=== PATIENT | female | born 1965 | race Caucasian/White ===

== ENCOUNTER 2017-10-04 12:52 | Emergency (ER) | payer OTHER ==
[~2017-10-04] VITALS: Ht 167.6 cm; Wt 69.0 kg
[~2017-10-04 12:52] MED LIST: INSU3INS6 SQ; METF500T4 PO; REG INSULIN
[2017-10-04] MEDS ORDERED: SODIUM CHLORIDE 0.9% 1,000 ML IV ONE ×2 (13:04→14:19)
[2017-10-04 13:22] LABS: BASOPHILS % 0.4 % (0.0-2.0); EOSINOPHILS % 0.9 % (0.0-5.0); HEMATOCRIT. 43.3 % (36.0-48.0); HEMOGLOBIN. 14.2 g/dL (12.0-16.0); LYMPHOCYTES % 18.8 % (20.0-50.0); MEAN CORPUSCULAR HEMOGLOBIN 27.4 pg (28.0-32.0); MEAN CORPUSCULAR VOLUME 83.6 fL (81.0-99.0); MEAN PLATELET VOLUME 8.6 fl (7.4-10.4); MONOCYTES % 3.5 % (2.0-8.0); NEUTROPHILS % 76.4 % (40.0-76.0); PLATELET 302 x1000/uL (130-400); RED BLOOD CELL COUNT 5.19 mill/uL (4.2-5.4); RED CELL DISTRIBUTION WIDTH 13.5 % (11.6-14.6)
[2017-10-04 13:30] LABS: CHLORIDE 90 mEq/L (98-107)
[2017-10-04 13:33] LABS: INR 0.9; PROTHROMBIN TIME 9.8 sec (9.4-11.6)
[2017-10-04 13:40] LABS: CARBON DIOXIDE 24 mEq/L (21-32)
[2017-10-04 14:15] LABS: CLARITY URINE CLEAR (CLEAR); COLOR URINE YELLOW (YELLOW); GLUCOSE URINE 3+ (NEGATIVE); KETONES URINE NEGATIVE (NEGATIVE); LEUKOCYTE ESTERASE URINE NEGATIVE (NEGATIVE); NITRITE URINE NEGATIVE (NEGATIVE); OCCULT BLOOD URINE 1+ (NEGATIVE); PROTEIN URINE NEGATIVE (NEGATIVE); SPECIFIC GRAVITY URINE 1.025 (1.005-1.030); UROBILINOGEN URINE 0.2 E.U./dL (0.2-1.0)
[2017-10-04] MEDS ORDERED: INSULIN REGULAR (HUMULIN R) 300UNITS/3ML IV ONE (14:30)
[2017-10-04] MEDS ORDERED: ONDANSETRON HCL 4MG/2ML VIAL IV ONE (17:15)
[2017-10-04 17:38] VITALS: BP 162/96
== END 2017-10-04 18:59 | disposition home or self-care (01) ==
LOC: ER 13:02
DX: E11.65 Type 2 diabetes mellitus with hyperglycemia (principal); I10 Essential (primary) hypertension; Z79.4 Long term (current) use of insulin; Z90.49 Acquired absence of other specified parts of digestive tract; Z98.890 Other specified postprocedural states; Z90.710 Acquired absence of both cervix and uterus
CPT/HCPCS: 36415; 80053; 81001; 82962; 85025; 85610; 87077; 87086; 87186; 93005; 96361; 96374; 96375; 99285; J1815; J2405; Z7610; J7030

== ENCOUNTER 2024-07-10 22:32 | Inpatient (IN) | payer MEDICARE, MEDICAID ==
[~2024-07-10] VITALS: Ht 157.5 cm; Wt 38.1 kg
[~2024-07-10 22:32] MED LIST changes: +METF-414 PO; -METF500T4 PO
[2024-07-10 22:35] VITALS: O2SAT 98
[2024-07-10 23:17] LABS: BASOPHILS % 1.6 % (0.0-2.0); EOSINOPHILS % 2.8 % (0.0-5.0); HEMATOCRIT. 33.7 % (36.0-48.0); HEMOGLOBIN. 10.6 g/dL (12.0-16.0); LYMPHOCYTES % 26.2 % (20.0-50.0); MEAN CORPUSCULAR HEMOGLOBIN 27.3 pg (28.0-32.0); MEAN CORPUSCULAR HGB CONC 31.5 g/dL (31.0-37.0); MEAN CORPUSCULAR VOLUME 86.8 fL (81.0-99.0); MEAN PLATELET VOLUME 7.1 fl (7.4-10.4); MONOCYTES % 7.9 % (2.0-8.0); NEUTROPHILS % 61.5 % (40.0-76.0); PLATELET 413 x1000/uL (130-400); RED BLOOD CELL COUNT 3.88 mill/uL (4.2-5.4); WHITE BLOOD COUNT 6.9 x1000/uL (4.5-11.0)
[2024-07-10 23:28] LABS: PARTIAL THROMBOPLASTIN TIME 32.1 sec (23.4-31.0); PROTHROMBIN TIME 10.9 sec (9.6-11.0)
[2024-07-10 23:40] LABS: CHLORIDE 94 mEq/L (98-107); SODIUM 132 mEq/L (136-145)
[2024-07-10 23:41] LABS: CALCIUM 9.3 mg/dL (8.7-10.4); CARBON DIOXIDE 29 mEq/L (21-32)
[2024-07-10 23:46] LABS: CREATININE 3.5 mg/dL (0.6-1.0); GLUCOSE 175 mg/dL (70-105); TROPONIN I HIGH SENSITIVITY 34 ng/L (3.0-34); UREA NITROGEN BLOOD 53 mg/dL (9-23)
[2024-07-10 23:57] LABS: ETHANOL BLOOD < 10 mg/dL (<10)
[2024-07-11] VITALS (12 sets, daily range): BP systolic 120–166; BP diastolic 68–84; PULSE 75–82; RESP 18–20; TEMP 36.22512–37.05852; O2SAT 97–100
[2024-07-11] MEDS: HYDRALAZINE 20MG/ML VIAL IV NR (00:58)
[2024-07-11] MEDS: NITROGLYCERIN 0.4MG TABLET SL SL NR (00:58)
[2024-07-11] MEDS ORDERED: MAGNESIUM/ALUMINUM HYDROXIDE/SIMETHICONE 30ML UDC PO PRN (02:30)
[2024-07-11] MEDS ORDERED: ONDANSETRON HCL 4MG/2ML INJ IV PRN (02:30)
[2024-07-11] MEDS ORDERED: DEXTROSE 50% WATER 50ML SYRINGE IV PRN (02:30)
[2024-07-11] MEDS ORDERED: ACETAMINOPHEN 325MG TABLET PO PRN ×2 (02:30)
[2024-07-11] MEDS ORDERED: NA PHOS,M-B/NA PHOS,DI-BA ENEMA 118ML PR PRN (02:30)
[2024-07-11] MEDS ORDERED: GUAIFENESIN 200MG/10ML SUGAR FREE UDC PO PRN (02:30)
[2024-07-11] MEDS ORDERED: IPRATROPIUM/ALBUTEROL 0.5-3(2.5)MG/3ML NEB HHN PRN (02:30)
[2024-07-11] MEDS ORDERED: NITROGLYCERIN 0.4MG TABLET SL SL PRN (04:00)
[2024-07-11] MEDS ORDERED: METOCLOPRAMIDE HCL 5MG TABLET PO PRN (04:00)
[2024-07-11] MEDS: ASPIRIN 81MG TABLET PO NR (04:40)
[2024-07-11] MEDS: FUROSEMIDE 40MG/4ML VIAL IV NR (04:42)
[2024-07-11 05:12] LABS: CHLORIDE 96 mEq/L (98-107); SODIUM 132 mEq/L (136-145)
[2024-07-11 05:13] LABS: CALCIUM 8.9 mg/dL (8.7-10.4); CARBON DIOXIDE 28 mEq/L (21-32)
[2024-07-11 05:18] LABS: BASOPHILS % 0.8 % (0.0-2.0); CREATININE 3.5 mg/dL (0.6-1.0); EOSINOPHILS % 3.4 % (0.0-5.0); GLUCOSE 124 mg/dL (70-105); HEMOGLOBIN. 9.8 g/dL (12.0-16.0); LYMPHOCYTES % 28.6 % (20.0-50.0); MEAN CORPUSCULAR HEMOGLOBIN 27.4 pg (28.0-32.0); MEAN CORPUSCULAR HGB CONC 31.7 g/dL (31.0-37.0); MEAN CORPUSCULAR VOLUME 86.5 fL (81.0-99.0); MEAN PLATELET VOLUME 7.3 fl (7.4-10.4); MONOCYTES % 9.5 % (2.0-8.0); NEUTROPHILS % 57.7 % (40.0-76.0); PLATELET 409 x1000/uL (130-400); RED BLOOD CELL COUNT 3.58 mill/uL (4.2-5.4); RED CELL DISTRIBUTION WIDTH 18.9 % (11.6-14.6); UREA NITROGEN BLOOD 56 mg/dL (9-23); WHITE BLOOD COUNT 6.7 x1000/uL (4.5-11.0)
[2024-07-11 05:20] LABS: PHOSPHORUS 6.3 mg/dL (2.5-4.9)
[2024-07-11 05:24] LABS: T4 FREE 1.01 ng/dL (0.89-1.76)
[2024-07-11 05:25] LABS: THYROID STIMULATING HORMONE 5.03 uIU/mL (0.55-4.78)
[2024-07-11 05:55] LABS: TROPONIN I HIGH SENSITIVITY 37 ng/L (3.0-34)
[2024-07-11] MEDS: INSULIN LISPRO 100 UNITS/ML SUBCUT SCH (06:43)
[2024-07-11] MEDS: BLOOD SUGAR DIAGNOSTIC STRIP TEST SCH (06:43)
[2024-07-11] MEDS: ENOXAPARIN 30MG/0.3ML SYR SUBCUT SCH (08:50)
[2024-07-11] MEDS: HYDRALAZINE HCL 10MG TABLET PO SCH (08:51)
[2024-07-11] MEDS: PANTOPRAZOLE 40MG DR TABLET PO SCH (08:51)
[2024-07-11] MEDS: AMLODIPINE 5MG TABLET PO SCH (08:51)
[2024-07-11 10:17] LABS: T4 FREE 1.11 ng/dL (0.89-1.76)
[2024-07-11] MEDS: INSULIN GLARGINE 100 UNITS/ML SUBCUT SCH (11:12)
[2024-07-11] MEDS ORDERED: IOHEXOL-350 100 ML BOTTLE ONE (15:19)
[2024-07-11] MEDS: FUROSEMIDE 40MG/4ML VIAL IV SCH (17:15)
[2024-07-11 19:02] LABS: CREATINE KINASE MB FRACTION 3.7 ng/mL (0.5-3.6)
[2024-07-11 19:18] LABS: HEPATITIS B SURFACE ANTIGEN NEGATIVE (Negative)
[2024-07-11 19:39] LABS: HEPATITIS A AB IGM NEGATIVE (Negative)
[2024-07-11 19:40] LABS: HEPATITIS B CORE AB IGM NEGATIVE (Negative); HEPATITIS C AB NON REACTIVE (Neg) (Negative)
[2024-07-11] MEDS: ATORVASTATIN CALCIUM 40MG TABLET PO SCH (20:35)
[2024-07-11] MEDS: HYDROCODONE/ACETAMINOPHEN 5/325MG TABLET PO PRN (20:35)
[2024-07-11] MEDS: EPOETIN ALFA-EPBX 4,000 UNIT/ML VIAL SUBCUT SCH (21:56)
[2024-07-11] MEDS: DIPHENHYDRAMINE 25MG CAPSULE PO NR (23:14)
[2024-07-12] VITALS: BP 152/72; PULSE 76; RESP 18; TEMP 36.6696; O2SAT 100
[2024-07-12 01:31] LABS: CREATINE KINASE MB FRACTION 3.3 ng/mL (0.5-3.6)
[2024-07-12] MEDS: CLONIDINE 0.1MG TABLET PO PRN (03:50)
[2024-07-12 04:00] VITALS: BP 161/71; PULSE 74; RESP 20; TEMP 36.6696; O2SAT 98
[2024-07-12 06:54] LABS: BASOPHILS % 1.2 % (0.0-2.0); EOSINOPHILS % 4.2 % (0.0-5.0); HEMATOCRIT. 29.9 % (36.0-48.0); HEMOGLOBIN. 9.4 g/dL (12.0-16.0); LYMPHOCYTES % 23.8 % (20.0-50.0); MEAN CORPUSCULAR HGB CONC 31.4 g/dL (31.0-37.0); MEAN CORPUSCULAR VOLUME 86.1 fL (81.0-99.0); MEAN PLATELET VOLUME 7.3 fl (7.4-10.4); MONOCYTES % 11.2 % (2.0-8.0); NEUTROPHILS % 59.6 % (40.0-76.0); PLATELET 386 x1000/uL (130-400); RED BLOOD CELL COUNT 3.47 mill/uL (4.2-5.4); RED CELL DISTRIBUTION WIDTH 18.5 % (11.6-14.6); WHITE BLOOD COUNT 5.1 x1000/uL (4.5-11.0)
[2024-07-12 07:03] LABS: CHLORIDE 97 mEq/L (98-107); POTASSIUM 4.2 mEq/L (3.5-5.1); SODIUM 134 mEq/L (136-145)
[2024-07-12 07:04] LABS: CARBON DIOXIDE 29 mEq/L (21-32)
[2024-07-12 07:05] LABS: CALCIUM 8.5 mg/dL (8.7-10.4)
[2024-07-12 07:09] LABS: CREATININE 3.1 mg/dL (0.6-1.0)
[2024-07-12 07:10] LABS: CREATINE KINASE MB FRACTION 3.5 ng/mL (0.5-3.6); GLUCOSE 105 mg/dL (70-105); UREA NITROGEN BLOOD 38 mg/dL (9-23)
[2024-07-12 07:11] LABS: CREATINE KINASE 21 IU/L (34-145)
[2024-07-12 07:12] LABS: PHOSPHORUS 5.3 mg/dL (2.5-4.9)
[2024-07-12 08:00] VITALS: BP 169/82; PULSE 74; RESP 18; TEMP 37.00296; O2SAT 97
[2024-07-12] MEDS ORDERED: IOHEXOL-350 100 ML BOTTLE ONE (10:56)
[2024-07-12] MEDS ORDERED: NITROGLYCERIN SPRAY/4.9GM CAN TL NR (11:00)
[2024-07-12 16:00] VITALS: BP 166/65; PULSE 73; RESP 18; TEMP 36.3918; O2SAT 97
[2024-07-12] MEDS: HYDRALAZINE HCL 10MG TABLET PO SCH (16:37)
[2024-07-12 20:00] VITALS: BP 159/76; PULSE 81; RESP 19; TEMP 36.72516; O2SAT 98
[2024-07-12] MEDS: AMLODIPINE 5MG TABLET PO SCH (20:45)
[2024-07-13] VITALS (9 sets, daily range): BP systolic 115–174; BP diastolic 60–85; PULSE 70–78; RESP 17–20; TEMP 36.3918–37.11408; O2SAT 96–100
[2024-07-13 05:52] LABS: EOSINOPHILS % 3.1 % (0.0-5.0); HEMATOCRIT. 28.4 % (36.0-48.0); LYMPHOCYTES % 27.4 % (20.0-50.0); MEAN CORPUSCULAR HEMOGLOBIN 27.3 pg (28.0-32.0); MEAN CORPUSCULAR HGB CONC 31.6 g/dL (31.0-37.0); MEAN CORPUSCULAR VOLUME 86.2 fL (81.0-99.0); MEAN PLATELET VOLUME 7.3 fl (7.4-10.4); MONOCYTES % 10.8 % (2.0-8.0); NEUTROPHILS % 57.7 % (40.0-76.0); PLATELET 377 x1000/uL (130-400); RED CELL DISTRIBUTION WIDTH 18.5 % (11.6-14.6); WHITE BLOOD COUNT 6.2 x1000/uL (4.5-11.0)
[2024-07-13 05:56] LABS: CARBON DIOXIDE 27 mEq/L (21-32); CHLORIDE 94 mEq/L (98-107); POTASSIUM 5.5 mEq/L (3.5-5.1); SODIUM 130 mEq/L (136-145)
[2024-07-13 05:57] LABS: CALCIUM 8.5 mg/dL (8.7-10.4)
[2024-07-13 06:01] LABS: GLUCOSE 133 mg/dL (70-105)
[2024-07-13 06:02] LABS: UREA NITROGEN BLOOD 49 mg/dL (9-23)
[2024-07-13 07:58] LABS: PHOSPHORUS 6.5 mg/dL (2.5-4.9)
[2024-07-13] MEDS: ASPIRIN 81MG TABLET PO SCH (11:42)
[2024-07-13] MEDS: DOCUSATE SODIUM 100MG CAPSULE PO PRN (11:45)
[2024-07-13 21:50] LABS: POTASSIUM 5.3 mEq/L (3.5-5.1)
[2024-07-13 21:57] LABS: CREATININE 3.4 mg/dL (0.6-1.0)
[2024-07-14] VITALS: BP 159/61; PULSE 75; RESP 18; TEMP 36.61404; O2SAT 97
[2024-07-14] MEDS: LORAZEPAM 0.5MG TABLET PO NR (03:57)
[2024-07-14 04:00] VITALS: BP 156/65; PULSE 71; RESP 20; TEMP 36.05844; O2SAT 97
[2024-07-14 07:35] LABS: CHLORIDE 95 mEq/L (98-107); POTASSIUM 5.6 mEq/L (3.5-5.1); SODIUM 129 mEq/L (136-145)
[2024-07-14 07:36] LABS: CALCIUM 8.7 mg/dL (8.7-10.4); CARBON DIOXIDE 24 mEq/L (21-32)
[2024-07-14 07:39] LABS: BASOPHILS % 0.7 % (0.0-2.0); EOSINOPHILS % 2.5 % (0.0-5.0); HEMATOCRIT. 27.9 % (36.0-48.0); HEMOGLOBIN. 8.8 g/dL (12.0-16.0); LYMPHOCYTES % 23.1 % (20.0-50.0); MEAN CORPUSCULAR HEMOGLOBIN 27.3 pg (28.0-32.0); MEAN CORPUSCULAR HGB CONC 31.5 g/dL (31.0-37.0); MEAN CORPUSCULAR VOLUME 86.5 fL (81.0-99.0); MEAN PLATELET VOLUME 7.2 fl (7.4-10.4); MONOCYTES % 9.3 % (2.0-8.0); NEUTROPHILS % 64.4 % (40.0-76.0); PLATELET 396 x1000/uL (130-400); RED BLOOD CELL COUNT 3.22 mill/uL (4.2-5.4); RED CELL DISTRIBUTION WIDTH 19.1 % (11.6-14.6); UREA NITROGEN BLOOD 54 mg/dL (9-23); WHITE BLOOD COUNT 6.7 x1000/uL (4.5-11.0)
[2024-07-14 07:41] LABS: CREATININE 3.6 mg/dL (0.6-1.0); GLUCOSE 188 mg/dL (70-105)
[2024-07-14 07:43] LABS: ALANINE AMINOTRANSFERASE 11 IU/L (10-49); ALBUMIN 3.7 g/dL (3.2-4.8); ASPARTATE AMINOTRANSFERASE 13 IU/L (<34); PHOSPHORUS 6.8 mg/dL (2.5-4.9)
[2024-07-14 07:44] LABS: BILIRUBIN TOTAL 0.2 mg/dL (0.1-1.0)
[2024-07-14 08:04] VITALS: BP 148/63; PULSE 64; RESP 18; TEMP 36.61404; O2SAT 100
[2024-07-14 08:21] LABS: BILIRUBIN DIRECT < 0.1 mg/dL (<=3.0)
[2024-07-14] MEDS: FAMOTIDINE 20MG TABLET PO SCH (08:35)
[2024-07-14] MEDS ORDERED: SODIUM ZIRCONIUM CYCLOSILICATE 10GM/PACKET PO NR ×2 (11:45→21:00)
[2024-07-14] MEDS ORDERED: NALOXONE HCL 0.4MG/ML VIAL IV PRN (12:00)
== END 2024-07-14 11:05 | disposition left against medical advice (07) | DRG 264 ==
LOC: ER 22:32 → EDBEDREQ 07-11 01:42 → EDBEDREQTM 07-11 01:42 → 7WST 07-11 05:08
PROVIDERS: ADMIT Internal Medicine; ATTEND Internal Medicine
PROC: 0JBQ0ZZ Excision of Right Foot Subcutaneous Tissue and Fascia, Open Approach (ICD-10-PCS; principal; 2024-07-11)
PROC: 5A1D70Z Performance of Urinary Filtration, Intermittent, Less than 6 Hours Per Day (ICD-10-PCS; 2024-07-11)
PROC: 5A1D70Z Performance of Urinary Filtration, Intermittent, Less than 6 Hours Per Day (ICD-10-PCS; 2024-07-13)
DX: I13.2 Hypertensive heart and chronic kidney disease with heart failure and with stage 5 chronic kidney disease, or end stage renal disease (principal); I50.33 Acute on chronic diastolic (congestive) heart failure; J96.90 Respiratory failure, unspecified, unspecified whether with hypoxia or hypercapnia; L89.613 Pressure ulcer of right heel, stage 3; N18.6 End stage renal disease; E78.5 Hyperlipidemia, unspecified; E11.65 Type 2 diabetes mellitus with hyperglycemia; E11.22 Type 2 diabetes mellitus with diabetic chronic kidney disease; I25.119 Atherosclerotic heart disease of native coronary artery with unspecified angina pectoris; I34.81 Nonrheumatic mitral (valve) annulus calcification; D63.1 Anemia in chronic kidney disease; Z53.29 Procedure and treatment not carried out because of patient's decision for other reasons; L89.156 Pressure-induced deep tissue damage of sacral region; K21.9 Gastro-esophageal reflux disease without esophagitis; F32.9 Major depressive disorder, single episode, unspecified; Z79.4 Long term (current) use of insulin; Z90.710 Acquired absence of both cervix and uterus; Z99.2 Dependence on renal dialysis; Z99.3 Dependence on wheelchair; Z99.81 Dependence on supplemental oxygen; Z79.82 Long term (current) use of aspirin; Z79.899 Other long term (current) drug therapy; Z82.49 Family history of ischemic heart disease and other diseases of the circulatory system; Z90.49 Acquired absence of other specified parts of digestive tract
CPT/HCPCS: 36415; 71045; 71275; 75571; 76604; 80048; 80061; 80076; 80320; 82550; 82553; 82728; 82962; 83036; 83735; 83880; 84100; 84439; 84443; 84484; 85025; 85379; 86705; 86709; 87340; 90935; 93005; 93306; 93970; 99285; J0360; J0885; J1650; J1815; J1940; Q0163; Q9967; G0480